=== PATIENT | male | born 1995 | race Two or more races ===

== ENCOUNTER 2024-07-13 09:28 | Emergency (ER) | payer SELFPAY ==
--- NOTE | ~2024-07-13 | XR_ITS ---
EXAMINATION: XR LUMBOSACRAL SPINE CLINICAL INFORMATION: Lower back pain. COMPARISON: None available. TECHNIQUE: Three views of the lumbosacral spine. FINDINGS: The vertebral bodies and posterior elements are normal. The disc spaces are preserved and the vertebral alignment is normal. The paraspinal soft tissues are normal. XR/XR lumbar spine 2-3V IMPRESSION: Unremarkable examination. Electronically signed by: Maldonado Upton MD 07/13/2024 02:37 PM EDT
[2024-07-13 09:38] VITALS: BP 110/56; PULSE 81; RESP 18; TEMP 37.2; O2SAT 100; BMI 26.6
[2024-07-13] MEDS: Ketorolac Tromethamine 30 MG/ML VIAL IM (11:16)
--- NOTE | 2024-07-13 11:27 | ED.GENADULT ---
HPI - General Adult General Chief complaint: Back Pain/Injury Stated complaint: back pain Time Seen by Provider: 07/13/24 10:32 Source: patient Mode of arrival: ambulatory Limitations: no limitations History of Present Illness ED Provider: Giuliano Griggs PA-C HPI narrative: 29-year-old male healthy presents to ED for chronic back pain exacerbation that is worse on movement. 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 Patient denies any recent sports injury or trauma. Patient denies any abdominal pain, nausea, vomiting, dysuria, or hematuria. Patient denies any complaints Related Data Previous Rx's ?Medication ?Instructions ?Recorded ketorolac 10 mg tablet 10 mg PO QID PRN pain 5 days #20 07/13/24 tabs Allergies Allergy/AdvReac Type Severity Reaction Status Date / Time No Known Allergies Allergy Verified 07/13/24 09:40 Review of Systems Review of Systems: Back pain worse on movement Yes all other systems are reviewed and are negative [facility] Social History Social History Unable to assess alcohol history related to: Unknown Use of substances other than those prescribed or required for medical reasons: Unknown Advance Directives: No Advance Directives Information Provided: No Do you have a plan to hurt others: No Plan Physical Exam ED Vital Signs: Vital Signs - 24 hr 07/13/24 09:38 07/13/24 13:26 Temperature 98.9 F 98.0 F Pulse Rate 81 59 Respiratory Rate 18 18 Blood Pressure 110/56 L 115/54 L Pulse Oximetry 100 98 Oxygen Delivery Method Room Air Room Air BMI result Body Mass Index 26.6 Const General: cooperative, healthy appearing, comfortable, no acute distress, well developed, alert, awake and Physically active Orientation/consciousness: patient oriented x3 HENMT Head: Yes normal to inspection, Yes No palpable skull fracture present, Yes normocephalic, Yes atraumatic and No abrasion Eyes General: appearance normal, both eyes and all related structures Neck Neck: Yes normal visual inspection, Yes full ROM, Yes no lymphadenopathy, Yes no meningeal signs, Yes trachea midline, Yes supple, No anterior neck swelling and No tender Chest Chest palpation & inspection: normal inspection of the chest and normal palpation of entire chest wall Resp Effort & Inspection: normal respiratory effort and able to speak in complete sentences Auscultation: clear to auscultation bilaterally Cardio Jugular venous distension: no JVD Heart sounds: S1 normal heart sound present and S2 normal heart sound present GI Inspection: Yes normal to inspection Palpation (GI): Soft to palpation, not firm, nontender, no guarding and not rigid General: No CVA tenderness and Yes no CVA tenderness Back/Spine/Pelvis Back: no CVA tenderness, No CVA tenderness and back tenderness (lumbar) Skin General skin exam: no rashes or lesions noted, elasticity normal and turgor normal Neuro General: patient oriented x3, gait normal, tone normal, moves all extremities, Normal light touch and pain sensation, no meningeal signs, no focal motor deficits, CN's II-XI intact bilaterally and normal sensation to monofilament Extrem General: Yes normal to inspection, Yes full ROM, Yes capillary refill normal and Yes normal exam except as noted Psych Appearance: grossly normal, well kempt and not disheveled Medications Administered Discontinued Medications Generic Name Dose Route Start Last Admin Trade Name Freq PRN Reason Stop Dose Admin Ketorolac Tromethamine 30 mg 07/13/24 10:42 07/13/24 11:16 Ketorolac Tromethamine 30 Mg/Ml Vial IM 07/13/24 10:43 30 mg ONCE ONE Administration Medical Decision Making Medical Decision Making MDM Narrative: 29 year male presents to ED for lower back pain is worse on movement. Patient denies any urinary/bowel incontinence. Patient denies any IV drug use or history of any immunocompromise diseases. Was sent for x-ray. 2:57pm: X-ray negative for fracture arthritis. Not suspecting cauda equinus syndrome or epidural abscess. Patient denies any urinary/ bowel incontinence, lower extremity weakness, IV drug use, any history of immunocompromise diseases. Not suspecting kidney stones, pylenophritis, or any life threatening etiology. Differential Diagnosis Differential Diagnoses: The differential diagnosis associated with the presentation includes ( Fracture, radiculopathy) Admission/Observation Consideration of admission/observation: Escalation of care including admission/observation considered Independent Interpretation I performed an independent interpretation of an: Plain X-Ray Radiology Impression Discussion of test interpretation with radiology: I have reviewed the radiologist's reading. Independent Historian Clinical information obtained from an independent historian. History obtained from or confirmed by: Other (patient) External Record Review External record reviewed: Other (prior visits) Discharge Plan Discharge Clinical Impression: Back pain Patient Disposition: Home, Self-Care Instructions: Back Pain (ED) Additional Instructions: recommend follow-up with primary care provider. Return to the ED immediately for severe back pain, nausea, vomiting, flank pain, dysuria, hematuria, fever, chills, testicular pain, or any other concerning symptoms. FINDINGS: The vertebral bodies and posterior elements are normal. The disc spaces are preserved and the vertebral alignment is normal. The paraspinal soft tissues are normal. XR/XR lumbar spine 2-3V IMPRESSION: Unremarkable examination. Electronically signed by: Maldonado Upton MD 07/13/2024 02:37 PM EDT RP Prescriptions: New ketorolac 10 mg tablet 10 mg PO QID PRN (Reason: pain) 5 Days Qty: 20 0RF Rx Instructions: Patient received Toradol 30 IM in the ED Stand Alone Forms: Work/School Release Interventions: ED Discharge Assessment Last Done: 07/13/24 15:13 Discharge Date/Time: 07/13/24 15:13 Print Language: Setswana
[2024-07-13 13:26] VITALS: BP 115/54; PULSE 59; RESP 18; TEMP 36.7; O2SAT 98
[2024-07-13 15:13] VITALS: BP 143/75; PULSE 60; RESP 18; TEMP 36.7; O2SAT 96
== END 2024-07-13 15:13 | disposition home or self-care (01) ==
PROVIDERS: Emergency Provider Emergency Medicine Emergency Medical Services
DX: M54.50 Low back pain, unspecified (principal)
CPT/HCPCS: 72100; 96372; 99284; J1885